=== PATIENT | female | born 1945 | race Asian ===

== ENCOUNTER 2018-12-27 06:35 | Day surgery (SDC) | payer MEDICARE, OTHER ==
[~2018-12-27] VITALS: Ht 144.8 cm; Wt 45.5 kg
[~2018-12-27 06:35] MED LIST: ACET-66 PO; ALBU8.5H8 IH; ALEN70TA2 PO; AMLO1TAB14 PO; CODE118S2 PO; FLUT16H NASAL; LOPE2 PO; MONT10TA21 PO; P-EP-31 PO; PRED10 PO; ROSU20TA23 PO; SODIUM CHLORIDE 0.9% 1,000 ML IV ONE; TOBR5DRO7 OP
[2018-12-27] MEDS ORDERED: LIDOCAINE 2% 5 ML JELLY TP ONE (06:36)
[2018-12-27] MEDS ORDERED: LIDOCAINE 4% 50 ML SOLUTION TP ONE (06:36)
[2018-12-27] MEDS ORDERED: BENZOCAINE 20% 50 MCG/SPRAY 57 GM TP ONE (06:36)
[2018-12-27] MEDS ORDERED: ALBUTEROL SULFATE 2.5 MG/0.5 ML NEB SOLUTION NEB ONE (06:36)
[2018-12-27] MEDS ORDERED: SODIUM CHLORIDE 0.9% 1,000 ML IV ONE (07:00)
[2018-12-27] MEDS ORDERED: ATOR40TA28 PO (07:46)
[2018-12-27] MEDS ORDERED: IRBE1TAB33 PO (07:46)
[2018-12-27] MEDS ORDERED: ASPI-1182 PO (07:46)
[2018-12-27] MEDS ORDERED: AMLO-511 PO (07:46)
[2018-12-27] MEDS ORDERED: OMEP20 PO (07:46)
[2018-12-27] MEDS ORDERED: FentaNYL CITRATE-PF 100 MCG/2 ML VIAL ONE (08:15)
[2018-12-27] MEDS ORDERED: MIDAZOLAM HCL 2 MG/2 ML VIAL ONE (08:15)
[2018-12-27] MEDS ORDERED: MethylPREDNISolone SOD SUCC 125 MG/2 ML VIAL IVP ONE (08:45)
[2018-12-27] MEDS ORDERED: MethylPREDNISolone SOD SUCC 125 MG/2 ML VIAL ONE (09:02)
[2018-12-27] MEDS ORDERED: OXYGEN THERAPY IH SCH (20:00)
== END 2018-12-27 10:40 | disposition home or self-care (01) ==
LOC: SURGERY 06:35
PROVIDERS: ATTEND Internal Medicine Critical Care Medicine
DX: J38.4 Edema of larynx (principal); B37.0 Candidal stomatitis; E78.00 Pure hypercholesterolemia, unspecified; M19.90 Unspecified osteoarthritis, unspecified site; I70.0 Atherosclerosis of aorta; Z91.013 Allergy to seafood; Z91.018 Allergy to other foods; Z98.42 Cataract extraction status, left eye; Z98.41 Cataract extraction status, right eye; Z79.01 Long term (current) use of anticoagulants
CPT/HCPCS: 31623; 31624; 71045; 87015; 87070; 87101; 87205; 87206; 87220; 88108; 88312; J2250; J2930; J3010; J7030